=== PATIENT | female | born 1955 | race African-American/Black ===

== ENCOUNTER 2017-02-12 07:25 | Day surgery (SDC) | payer OTHER ==
[2017-02-05 09:26] VITALS: BMI 29.2
[2017-02-12] MEDS ORDERED: PROPOFOL 20 ML ONE ×2 (07:27)
[2017-02-12] MEDS ORDERED: LIDOCAINE HCL/PF 2% SDV 5ML VIAL ONE (07:41)
[2017-02-12 09:26] VITALS: BP 117/69; PULSE 57; TEMP 97.5
--- NOTE | 2017-02-13 15:50 | PATH ---
Surgical Pathology Report Patient Name: SHARLENE ALANIS [facility]. Rec. #: [id number] /Age/Gender: 1955 (Age: 61) / F Account: [id number] Location: [facility] [place]-ENDOSCOPY Taken: 02/12/2017 Received: 02/12/2017 Reported: 02/13/2017 Physicians: Real Ruffin M.D. Specimen(s) Received BX HEPATIC FLEXURE Clinical History History of colon cancer Polyps Final Diagnosis HEPATIC FLEXURE POLYP, BIOPSY: HYPERPLASTIC POLYP. Electronically Signed Vibha Castaneda M.D. Gross Description Received in formalin, labeled "hepatic flexure polyp" are 3 garcia, irregular portions of soft tissue ranging from 0.1-0.4 cm. in greatest dimension. The specimens are submitted in toto in one cassette. 02/12/201702/12/2017
== END 2017-02-12 09:35 | disposition home or self-care (01) ==
LOC: FASU-ENDO 07:25
PROVIDERS: ATTEND Internal Medicine Gastroenterology
PROC: 0DBK8ZX Excision of Ascending Colon, Via Natural or Artificial Opening Endoscopic, Diagnostic (ICD-10-PCS; principal; 2017-02-12 08:26)
DX: Z85.038 Personal history of other malignant neoplasm of large intestine (principal); K63.5 Polyp of colon; Z78.0 Asymptomatic menopausal state
CPT/HCPCS: 88305-TC

== ENCOUNTER 2020-07-02 07:53 | Day surgery (SDC) | payer OTHER ==
[2020-06-28 10:00] VITALS: BMI 27.4
[2020-07-02 12:00] VITALS: TEMP 97.9
[2020-07-02 12:02] VITALS: BP 116/69; PULSE 60
== END 2020-07-02 11:40 | disposition home or self-care (01) ==
LOC: FASU-ENDO 07:53
PROVIDERS: ATTEND Internal Medicine Gastroenterology
PROC: 0DB98ZX Excision of Duodenum, Via Natural or Artificial Opening Endoscopic, Diagnostic (ICD-10-PCS; 2020-07-02)
PROC: 0DB68ZX Excision of Stomach, Via Natural or Artificial Opening Endoscopic, Diagnostic (ICD-10-PCS; 2020-07-02)
PROC: 0DB48ZX Excision of Esophagogastric Junction, Via Natural or Artificial Opening Endoscopic, Diagnostic (ICD-10-PCS; 2020-07-02)
PROC: 0DJD8ZZ Inspection of Lower Intestinal Tract, Via Natural or Artificial Opening Endoscopic (ICD-10-PCS; principal; 2020-07-02 09:44)
DX: Z08 Encounter for follow-up examination after completed treatment for malignant neoplasm (principal); Z85.038 Personal history of other malignant neoplasm of large intestine; Z98.0 Intestinal bypass and anastomosis status; K29.50 Unspecified chronic gastritis without bleeding; K21.00 Gastro-esophageal reflux disease with esophagitis, without bleeding; K44.9 Diaphragmatic hernia without obstruction or gangrene
CPT/HCPCS: 43239; G0105; 88305-TC; 88342-TC

== ENCOUNTER 2022-04-21 08:49 | Day surgery (SDC) | payer OTHER ==
[2022-04-18 13:40] VITALS: BMI 28.3
[2022-04-21] MEDS ORDERED: PROPOFOL 60 ML ONE (11:50)
[2022-04-21] MEDS ORDERED: LIDOCAINE HCL/PF 2% SDV 5ML VIAL ONE (11:50)
[2022-04-21 13:06] VITALS: RESP 18; TEMP 97
[2022-04-21 13:15] VITALS: BP 131/84; PULSE 69
== END 2022-04-21 13:45 | disposition home or self-care (01) ==
LOC: FASU-ENDO 08:49
PROVIDERS: ATTEND Internal Medicine Gastroenterology
PROC: 0DB98ZX Excision of Duodenum, Via Natural or Artificial Opening Endoscopic, Diagnostic (ICD-10-PCS; 2022-04-21)
PROC: 0DB68ZX Excision of Stomach, Via Natural or Artificial Opening Endoscopic, Diagnostic (ICD-10-PCS; 2022-04-21)
PROC: 0DJD8ZZ Inspection of Lower Intestinal Tract, Via Natural or Artificial Opening Endoscopic (ICD-10-PCS; principal; 2022-04-21 12:19)
DX: Z12.11 Encounter for screening for malignant neoplasm of colon (principal); Z86.010 Personal history of colon polyps; Z98.0 Intestinal bypass and anastomosis status; K29.80 Duodenitis without bleeding; K29.50 Unspecified chronic gastritis without bleeding; K44.9 Diaphragmatic hernia without obstruction or gangrene; R10.13 Epigastric pain
CPT/HCPCS: 88305-TC; 88342-TC